=== PATIENT | male | born 1955 | race Hispanic/Latino ===

== ENCOUNTER 2017-10-14 09:31 | Inpatient (IN) | payer OTHER ==
[2017-10-14 09:38] VITALS: BMI 43.0
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
[2017-10-14 11:00] LABS: BASO # 0.02 K/mm3 (0.0-2.0); BASO % 0.2 % (0.0-3.0); EOS # 0.2 (0.0-0.7); EOS % 1.3 % (1.5-5.0); GRAN # 10.58 (1.4-6.5); GRAN % 83.2 % (50.0-68.0); HEMATOCRIT 32.2 % (42.0-52.0); LYMPH # 1.1 (1.2-3.4); LYMPH % 8.5 % (22.0-35.0); MEAN CELL VOLUME 86.6 fl (80.0-105.0); MEAN CORPUSCULAR HEMOGLOBIN 29.3 pg (25.0-35.0); MEAN CORPUSCULAR HGB CONC 33.9 g/dl (31.0-37.0); MEAN PLATELET VOLUME 11.4 fl (7.0-11.0); MONO # 0.9 (0.1-0.6); MONO % 6.8 % (1.0-6.0); WHITE BLOOD COUNT 12.7 10^3/ul (4.5-11.0)
[2017-10-14 11:12] LABS: BLOOD UREA NITROGEN 15 mg/dL (7-21); CALCIUM 7.5 mg/dL (8.4-10.5); CARBON DIOXIDE 24 mmol/L (21-33); CHLORIDE 110 mmol/L (98-107); GFR AFRICAN-AMERICAN > 60; GLUCOSE,RANDOM 180 mg/dL (70-110); POTASSIUM 3.9 mmol/L (3.6-5.0); SODIUM 138 mmol/L (132-148)
[2017-10-14 11:21] LABS: INR 3.02 (0.93-1.08); PARTIAL THROMBOPLASTIN TIME 31.6 Seconds (25.1-36.5)
[2017-10-14] MEDS ORDERED: Lidocaine 1% Inj (20ml) ONE (11:22)
[2017-10-14] MEDS ORDERED: Sodium Chloride 0.9% 1,000 ML IV STA ×2 (11:33→15:23)
[2017-10-14] MEDS ORDERED: Cefepime IV 2 gm in NS 2 GM/100 ML BAG IVPB STA (12:11)
[2017-10-14 12:12] LABS: TROPONIN I < 0.01 ng/mL
--- NOTE | 2017-10-14 13:09 | RAD ---
HISTORY: hypotension COMPARISON: 06/21/2014 FINDINGS: LUNGS: No active pulmonary disease. PLEURA: No significant pleural effusion identified, no pneumothorax apparent. CARDIOVASCULAR: Moderate cardiomegaly OSSEOUS STRUCTURES: No significant abnormalities. VISUALIZED UPPER ABDOMEN: Normal. OTHER FINDINGS: None. IMPRESSION: No active disease.
[2017-10-14 13:26] LABS: VENOUS BLOOD GAS BASE EXCESS -1.2 mmol/L (0.0-2.0); VENOUS BLOOD PH 7.31 (7.32-7.43)
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
[2017-10-14 14:48] LABS: URINE BILIRUBIN NEGATIVE (NEGATIVE); URINE BLOOD NEGATIVE (NEGATIVE); URINE GLUCOSE (UA) NEGATIVE (NEGATIVE); URINE KETONE NEGATIVE (NEGATIVE); URINE LEUKOCYTE ESTERASE NEGATIVE Leu/uL (NEGATIVE); URINE PROTEIN 30 mg/dL (<30 mg/dL); URINE UROBILINOGEN 0.2 E.U./dL (<1 E.U./dL)
[2017-10-14 14:53] LABS: URINE APPEARANCE CLEAR (CLEAR); URINE COLOR YELLOW (YELLOW)
[2017-10-14 14:55] LABS: URINE BACTERIA TRACE (NEG); URINE EPITHELIAL CELLS 0 - 2 /hpf (0-5); URINE RBC NEGATIVE /hpf (0-2); URINE WBC 0 - 2 /hpf (0-6)
[2017-10-14] MEDS ORDERED: TRAMADOL HYDROCHLORIDE 50 MG PO PRN (20:35)
[2017-10-14] MEDS ORDERED: Non Formulary Medication (Hydralazine Hcl [Hydralazine Hcl] 100 MG) PO SCH (22:00)
[2017-10-14] MEDS: Sodium Chloride 0.9% 1,000 ML IV SCH (22:00)
[2017-10-14] MEDS ORDERED: Non Formulary Medication (Simvastatin [Simvastatin] 40 MG) PO SCH (22:00)
[2017-10-14] MEDS ORDERED: LISINOPRIL 40 MG PO SCH (22:00)
[2017-10-14] MEDS ORDERED: DILTIAZEM 240 MG PO SCH (22:00)
[2017-10-14] MEDS ORDERED: diltiaZEM 240 mg/24 Hours CD Cap PO STA (22:01)
--- NOTE | 2017-10-14 22:10 | CARD ---
APPROVED REPORT EKG Measurement Heart [id number] <Conclusion> Atrial fibrillation Nonspecific T wave abnormality, probably digitalis effect Prolonged QT Abnormal ECG
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
[2017-10-14] MEDS ORDERED: SOTALOL HYDROCHLORIDE PO SCH (22:45)
[2017-10-15 01:06] LABS: HEMATOCRIT 28.5 % (42.0-52.0); MEAN CELL VOLUME 84.1 fl (80.0-105.0); MEAN CORPUSCULAR HEMOGLOBIN 28.9 pg (25.0-35.0); MEAN CORPUSCULAR HGB CONC 34.4 g/dl (31.0-37.0); RED CELL DISTRIBUTION WIDTH 14.9 % (11.5-14.5); WHITE BLOOD COUNT 12.3 10^3/ul (4.5-11.0)
[2017-10-15 01:26] LABS: BLOOD UREA NITROGEN 14 mg/dL (7-21); CARBON DIOXIDE 26 mmol/L (21-33); CHLORIDE 111 mmol/L (98-107); GFR AFRICAN-AMERICAN > 60; GLUCOSE,RANDOM 120 mg/dL (70-110); MAGNESIUM 1.8 mg/dL (1.7-2.2); PHOSPHOROUS 2.5 mg/dL (2.5-4.5); POTASSIUM 3.5 mmol/L (3.6-5.0); SODIUM 141 mmol/L (132-148)
[2017-10-15 01:37] LABS: TROPONIN I < 0.01 ng/mL
[2017-10-15] MEDS: diltiaZEM 240 mg/24 Hours CD Cap PO SCH (09:49)
[2017-10-15] MEDS: Potassium Chloride 10 mEq ER Tab PO SCH ×2 (09:49→18:22)
[2017-10-15] MEDS ORDERED: diltiaZEM 240 mg/24 Hours CD Cap PO SCH (10:00)
[2017-10-15] MEDS: Sodium Chloride 0.9% 1,000 ML IV SCH (10:41)
--- NOTE | 2017-10-15 12:50 | CP.PCM.CON ---
History of Present Illness - History of Present Illness History of Present Illness: 62 year old male with PMH of atrial fibrillation on anticoagulation, morbid obesity with BMI 44 with chronic venous stasis and history of leg cellulitis, S/ P appendectomy, S/P tonsillectomy, history of varicose veins came in to [facility] after he noted bleeding from the back of his right leg / right foot while taking a shower. After seeing that, he started to feel lightheaded and his vision became blurry. EMS was called and they put pressure on the bleeding area and he was brought to [facility] [place]. He was noted to have a possible varicose vein bleeding. He was also noted to have leukocytosis and Infectious diseases consult is requested to further evaluate and manage. He denies fever or chills, no nausea or vomiting, no chest pain, no SOB, no headache or dizziness, no abdominal pain, no diarrhea, no dysuria, no cough or colds. He denies any increased pain the legs. Has dogs and cats at home that occasionally brush on his legs, but prior to the bleeding he did not have open ulcers or wounds in the legs. Review of Systems - Review of Systems All systems: reviewed and no additional remarkable complaints except (as per HPI ) Past Patient History - Infectious Disease Hx of Infectious Diseases: None - Tetanus Immunizations Tetanus Immunization: Unknown - Past Social History Smoking Status: Never Smoked - CARDIAC Hx Cardiac Disorders: No Hx Angina: No Hx Cardia Arrhythmia: Yes (Afib) Hx Congestive Heart Failure: Yes Hx Hypercholesterolemia: Yes Hx Hypertension: Yes Hx Peripheral Edema: Yes (Bilateral Edema) Other/Comment: Ablation - PULMONARY Hx Respiratory Disorders: Yes Hx Asthma: Yes - NEUROLOGICAL Hx Neurological Disorder: No - HEENT Hx HEENT Problems: No (WEARS RX GLASSES) - RENAL Hx Chronic Kidney Disease: No - ENDOCRINE/METABOLIC Hx Endocrine Disorders: No - HEMATOLOGICAL/ONCOLOGICAL Hx Blood Disorders: No - INTEGUMENTARY Hx Dermatological Problems: Yes (BILATERAL LE CELLULITIS) - MUSCULOSKELETAL/RHEUMATOLOGICAL Hx Falls: Yes - GASTROINTESTINAL Hx Gastrointestinal Disorders: Yes (APPENDECTOMY) - GENITOURINARY/GYNECOLOGICAL Hx Genitourinary Disorders: No - PSYCHIATRIC Hx Anxiety: No Hx Bipolar Disorder: No Hx Depression: No Hx Emotional Abuse: No Hx Physical Abuse: No - SURGICAL HISTORY Hx Appendectomy: Yes Hx Cardiac Catheterization: No - ANESTHESIA Hx Anesthesia Reactions: No Hx Malignant Hyperthermia: No Meds Allergies/Adverse Reactions: Allergies Allergy/AdvReac Type Severity Reaction Status Date / Time codeine Allergy ITCHING Verified 02/21/16 16:18 - Medications Medications: Current Medications Amlodipine Besylate (Norvasc) 10 mg PO [facility] Last Admin: 10/14/17 21:13 Dose: Not Given Atorvastatin Calcium (Lipitor) 20 mg PO DIN [facility] Diltiazem HCl (Cardizem Cd) 240 mg PO DAILY [facility] Furosemide (Lasix) 40 mg PO DAILY [facility] Hydralazine HCl (Apresoline) 100 mg PO TID [facility] Sodium Chloride (Sodium Chloride 0.9%) 1,000 mls @ 70 mls/hr IV .[id number] [facility] Potassium Chloride (Potassium Chloride 10 Meq/100 Ml) 10 meq in 100 mls @ 100 mls/hr IVPB Q2H [facility] Stop: 10/15/17 07:14 Last Admin: 10/15/17 04:47 Dose: 100 mls/hr Lisinopril (Zestril) 40 mg PO DAILY [facility] Losartan Potassium (Cozaar) 100 mg PO DAILY [facility] Last Admin: 10/14/17 21:13 Dose: Not Given Potassium Chloride (Klor-Con 10) 10 meq PO BID [facility] Sotalol HCl (Betapace) 80 mg PO BID [facility] Tamsulosin HCl (Flomax) 0.4 mg PO DAILY [facility] Tramadol HCl (Ultram) 50 mg PO BID PRN PRN Reason: PAIN,MOD Physical Exam - Constitutional Appears: Non-toxic, No Acute Distress - Head Exam Head Exam: NORMAL INSPECTION - ENT Exam ENT Exam: Mucous Membranes Moist - Neck Exam Neck exam: Negative for: Lymphadenopathy, Meningismus - Respiratory Exam Respiratory Exam: Decreased Breath Sounds - Cardiovascular Exam Cardiovascular Exam: +S1, +S2 - GI/Abdominal Exam GI & Abdominal Exam: Soft. absent: Tenderness - Extremities Exam Additional comments: right leg with dressings in place Results - Vital Signs Recent Vital Signs: Last Vital Signs Temp 98.2 F 10/14/17 16:17 Pulse 118 H 10/15/17 02:00 Resp 22 10/15/17 00:43 BP 122/76 10/14/17 22:06 Pulse Ox 97 10/14/17 18:53 - Labs Result Diagrams: 10/15/17 00:30 10/15/17 00:30 Labs: Laboratory Results - last 24 hr 10/14/17 10/14/17 10/15/17 12:55 14:20 00:30 WBC 12.3 H RBC 3.39 L Hgb 9.8 L Hct 28.5 L MCV 84.1 MCH 28.9 MCHC 34.4 RDW 14.9 H Plt Count 159 MPV 11.0 pO2 46 VBG pH 7.31 L VBG pCO2 51.0 VBG HCO3 25.7 VBG Total CO2 27.3 VBG O2 Sat (Calc) 83.5 H VBG Base Excess -1.2 L VBG Potassium 3.5 L Sodium 140.0 Chloride 110.0 H Glucose 140 H Lactate 1.9 FiO2 21.0 Potassium Carbon Dioxide Anion Gap BUN Creatinine Est GFR ( Amer) Est GFR (Non-Af Amer) Random Glucose Calcium Phosphorus Magnesium Troponin I Venous Blood Potassium 3.5 L Urine Color Yellow Urine Appearance Clear Urine pH 7.0 Ur Specific [place] 1.015 Urine Protein 30 H Urine Glucose (UA) Negative Urine Ketones Negative Urine Blood Negative Urine Nitrate Negative Urine Bilirubin Negative Urine Urobilinogen 0.2 Ur Leukocyte Esterase Negative Urine RBC Negative Urine WBC 0 - 2 Ur Epithelial Cells 0 - 2 Urine Bacteria Trace 10/15/17 00:30 WBC RBC Hgb Hct MCV MCH MCHC RDW Plt Count MPV pO2 VBG pH VBG pCO2 VBG HCO3 VBG Total CO2 VBG O2 Sat (Calc) VBG Base Excess VBG Potassium Sodium 141 Chloride 111 H Glucose Lactate FiO2 Potassium 3.5 L Carbon Dioxide 26 Anion Gap 7 L BUN 14 Creatinine 0.9 Est GFR ( Amer) > 60 Est GFR (Non-Af Amer) > 60 Random Glucose 120 H Calcium 8.0 L Phosphorus 2.5 Magnesium 1.8 Troponin I < 0.01 Venous Blood Potassium Urine Color Urine Appearance Urine pH Ur Specific [place] Urine Protein Urine Glucose (UA) Urine Ketones Urine Blood Urine Nitrate Urine Bilirubin Urine Urobilinogen Ur Leukocyte Esterase Urine RBC Urine WBC Ur Epithelial Cells Urine Bacteria Assessment & Plan - Assessment and Plan (Free Text) Plan: Assessment systemic Inflammatory Response Syndrome, consider due to acute stress reaction from bleeding varicose veins, R/O infection , so far no evidence identified atrial fibrillation on anticoagulation morbid obesity with BMI 44 with chronic venous stasis and history of leg cellulitis S/P appendectomy S/P tonsillectomy history of varicose veins Plan Will monitor the patient off antibiotics and check blood, urine cx, PCT; reviewed CXR there is no evidence of acute infection in the legs will monitor clinically
--- NOTE | 2017-10-15 13:08 | CP.PCM.PN ---
Subjective - Date & Time of Evaluation Date of Evaluation: 10/15/17 Time of Evaluation: :15 - Subjective Subjective: PGY1 General Surgery Progress Note for Dr. Mims Reason for consult: bleeding varicose vein Patient seen and examined this morning at bedside. Patient states he is doing well this morning. His bleeding has stopped since having a dressing placed on his leg last night. Patient has no complaints this morning. He states he has been able to stand up and walk in his room since last night. Denies fevers, chills, lightheadedness, dizziness, chest pain, palpitations or vision changes. Objective - Vital Signs/Intake and Output Vital Signs (last 24 hours): Temp Pulse Resp BP Pulse Ox 98.4 F 106 H 20 129/81 96 10/15/17 06:00 10/15/17 09:50 10/15/17 06:00 10/15/17 09:50 10/15/17 06:00 Intake and Output: 10/15/17 10/15/17 06:59 18:59 Intake Total 300 Output Total 1650 Balance -1350 - Medications Medications: Current Medications Amlodipine Besylate (Norvasc) 10 mg PO [facility] Last Admin: 10/15/17 09:49 Dose: 10 mg Atorvastatin Calcium (Lipitor) 20 mg PO DIN [facility] Diltiazem HCl (Cardizem Cd) 240 mg PO DAILY [facility] Last Admin: 10/15/17 09:49 Dose: 240 mg Furosemide (Lasix) 40 mg PO DAILY [facility] Last Admin: 10/15/17 09:49 Dose: 40 mg Hydralazine HCl (Apresoline) 100 mg PO TID [facility] Last Admin: 10/15/17 09:50 Dose: 100 mg Sodium Chloride (Sodium Chloride 0.9%) 1,000 mls @ 70 mls/hr IV .[id number] [facility] Last Admin: 10/15/17 10:41 Dose: 70 mls/hr Lisinopril (Zestril) 40 mg PO DAILY [facility] Last Admin: 10/15/17 09:49 Dose: 40 mg Losartan Potassium (Cozaar) 100 mg PO DAILY [facility] Last Admin: 10/15/17 09:49 Dose: 100 mg Potassium Chloride (Klor-Con 10) 10 meq PO BID [facility] Last Admin: 10/15/17 09:49 Dose: 10 meq Sotalol HCl (Betapace) 80 mg PO BID [facility] Last Admin: 10/15/17 09:50 Dose: 80 mg Tamsulosin HCl (Flomax) 0.4 mg PO DAILY [facility] Last Admin: 10/15/17 09:49 Dose: 0.4 mg Tramadol HCl (Ultram) 50 mg PO BID PRN PRN Reason: PAIN,MOD - Labs Labs: 10/15/17 00:30 10/15/17 00:30 PT 34.0 SECONDS (9.4-12.5) H 10/14/17 10:30 INR 3.02 (0.93-1.08) H 10/14/17 10:30 APTT 31.6 Seconds (25.1-36.5) 10/14/17 10:30 - Constitutional Appears: Non-toxic, No Acute Distress - Head Exam Head Exam: ATRAUMATIC - Eye Exam Eye Exam: EOMI, Normal appearance. absent: Scleral icterus - ENT Exam ENT Exam: Mucous Membranes Moist - Respiratory Exam Respiratory Exam: NORMAL BREATHING PATTERN. absent: Accessory Muscle Use, Respiratory Distress - Extremities Exam Extremities Exam: Pedal Edema. absent: Calf Tenderness, Tenderness - Back Exam Additional comments: chronic venous stasis sking changes on LE b/l, 2+ edema large varicose veins medial to ankle b/l; pressure dressing on RLE is in place and c/d/i - Neurological Exam Neurological Exam: Alert, Awake, Oriented x3 - Psychiatric Exam Psychiatric exam: Normal Affect, Normal Mood - Skin Skin Exam: Dry, Warm Assessment and Plan - Assessment and Plan (Free Text) Assessment: 62 year old male on coumadin w/ bleeding varicose vein PMH: afib s/o ablation on coumadin, HTN, HLD, chronic venous stasis, varicose veins PSH: appy and tonsillectomy, cardiac ablation Plan: - LE duplex b/l - r/o DVT - Bleeding is currently controlled with pressure dressing - if re-bleed occurs, apply manual pressure and d/c coumadin - INR - 3.02 (10/14) - Hgb - 9.8 (10/15) from 10.9 (10/14) - No surgical intervention at this time - If LE duplex is negative, surgery will sign off. Patient can follow up with Dr. Mims in his office as an outpatient to address varicose veins. Case discussed with Dr. Felicita Oleary Ines PGY1
--- NOTE | 2017-10-15 15:47 | US ---
HISTORY: Leg pain and swelling. Evaluate for DVT PHYSICIAN(S): Nick Rodrigues MD. TECHNIQUE: Duplex sonography and color-flow Doppler with graded compression were used to evaluate the deep venous systems of both lower extremities. The exam is limited by body habitus and edema. The tibial veins are not adequately visualized. FINDINGS: The visualized deep venous systems of both lower extremities are sonographically normal and compressible. Normal wave forms and augmentation are seen. There is no sonographic evidence for deep venous thrombosis in the visualized segments of both lower extremities. IMPRESSION: No sonographic evidence for deep venous thrombosis in the visualized segments of both lower extremities. Limited study.
[2017-10-15] MEDS ORDERED: Potassium Chloride 10 mEq ER Tab PO STA ×2 (20:20→22:32)
--- NOTE | 2017-10-15 23:48 | HP ---
DATE: 10/14/2017 REASON FOR ADMISSION: Bleeding from his leg and dizziness. HISTORY OF PRESENT ILLNESS: A 62-year-old male with multiple medical problems, including right varicose veins in both lower extremities with chronic venous stasis. He also has atrial fibrillation on Coumadin, hypertension, hypercholesterolemia, morbid obesity, chronic back pain, and arthritis. The patient came into the hospital, noted while he was taking a shower there was warm feeling in his feet, he looked and found a pool of blood. He got dizzy from the way it looks; however, before he got syncopized or before he got so dizzy and weak, he called his neighbor, who came in and brought him to the ER by ambulance. The patient was evaluated. He was hypotensive and he was a little bit very anxious and confused, however, stabilized later on. His mental status improved without any intervention. The patient came in with right leg bleeding from the varicose site, and EMS treated him by putting pressure and brought him to the ER, IV fluids, and was evaluated. The patient denied any chest pain, any short of breath, any palpitations, any headache. He denied any trauma or any fall. He did not loose his consciousness, and he had denied any fever or any chills. PAST MEDICAL HISTORY: As I mentioned before, significant for hypertension, chronic atrial fibrillation, morbid obesity, hypercholesterolemia, chronic venous stasis, varicose veins, morbid obesity, hypercholesterolemia, and chronic osteoarthritis. SOCIAL HISTORY: The patient does not smoke, does not drink, does not use any alcohol. ALLERGIES: HE HAS ALLERGY TO CODEINE. FAMILY HISTORY: Noncontributory. REVIEW OF SYSTEMS: of arthritis, back pain. PHYSICAL EXAMINATION: VITAL SIGNS: When he came in on the date of admission, his temperature was 98.4, heart rate was 118, blood pressure was in the 90/65, respirations 20, saturation 97%. HEAD AND NECK: Normal. No JVD. No thyromegaly. CHEST: Clear, good air entry. CARDIAC: First sound and second sound normal. ABDOMEN: Soft, obese, nontender. EXTREMITIES: Right leg, there was gauze around his right ankle area where there is a bleeding site and there is trace of blood around his toes which was recently cleaned with saline. NEUROLOGIC: Normal. LABORATORY DATA: As follows; his white count 12.7, hemoglobin 10.9, hematocrit 32.2, platelets 176. Chemistry shows sodium 138, potassium 3.9, chloride 110, bicarb 24, BUN 15, creatinine is 1, blood sugar 180, calcium 7.5, and his troponin was negative. The patient also had a UA which was normal, negative. He also had a blood gas with a normal pH of 7.31, pCO2 of 51. The patient had a PT, PTT, INR was 3.02 which was within normal therapeutic range. PTT was 31.6 which was normal. IMPRESSION AND PLAN: A 62-year-old male with multiple medical problems, chronic venous insufficiency, chronic atrial fibrillation on Coumadin. He found bleeding from the varicose veins, massive bleeding, which made him probably vasovagal symptoms with dizziness associated with this. Brought in with low blood pressure and massive amount of bleeding. We will admit the patient for observation. We will blood culture him. We will give him a dose of Maxipime and vancomycin x1. We will get an Infectious Disease consult to followup on that. We will admit him for observation. Monitor his vital status, his bleeding status. We will repeat his blood work, CBC, and chemistry in the morning. We will hold off on Coumadin. The patient is not actively bleeding at this time. We will not antagonize his Coumadin with any fresh frozen plasma at this time. We will continue to observe the patient. We will hold off on blood pressure medications. IV fluids will be given and monitor his vital status on telemetry. Also we will consider Cardiology consult, Dr. Johnson, and vascular surgeon Dr. Mims and Dr. Nick Rodrigues for varicose veins evaluations. Continue current therapy for now. Followup clinically. The patient had a chest x-ray which shows no active lung disease, and he also add an electrocardiogram on admission which reported as no active ischemia and also reported as non-specific Q-wave abnormalities, atrial fibrillation, and prolonged QT interval. Manav Rubio MD
[2017-10-16] MEDS: Sodium Chloride 0.9% 1,000 ML IV SCH (00:41)
[2017-10-16 06:50] LABS: INR 2.05 (0.93-1.08)
[2017-10-16 07:50] LABS: BLOOD UREA NITROGEN 8 mg/dL (7-21); CALCIUM 8.4 mg/dL (8.4-10.5); CARBON DIOXIDE 26 mmol/L (21-33); CHLORIDE 110 mmol/L (98-107); CHOLESTEROL 132 mg/dL (130-200); GFR AFRICAN-AMERICAN > 60; GLUCOSE,RANDOM 103 mg/dL (70-110); MAGNESIUM 1.9 mg/dL (1.7-2.2); PHOSPHOROUS 2.4 mg/dL (2.5-4.5); POTASSIUM 3.3 mmol/L (3.6-5.0); SODIUM 141 mmol/L (132-148)
[2017-10-16] MEDS ORDERED: Potassium Chloride 20 mEq ER Tab PO ONE ×2 (08:48→12:32)
[2017-10-16] MEDS ORDERED: Aminophylline 25 mg/ml Inj ONE (09:29)
[2017-10-16] MEDS: Potassium Chloride 10 mEq ER Tab PO SCH ×2 (11:42→17:44)
[2017-10-16] MEDS: diltiaZEM 240 mg/24 Hours CD Cap PO SCH (11:42)
[2017-10-16] MEDS: Ammonium Lactate 12% Cream (140 g) TOP SCH (11:45)
--- NOTE | 2017-10-16 13:26 | CP.PCM.PN ---
Subjective - Date & Time of Evaluation Date of Evaluation: 10/16/17 Time of Evaluation: 10:30 - Subjective Subjective: Comfortable on a chair, no fevers, less pain in the right lower extremity. Objective - Vital Signs/Intake and Output Vital Signs (last 24 hours): Temp Pulse Resp BP Pulse Ox 98.7 F 85 18 127/79 97 10/16/17 06:00 10/16/17 06:00 10/16/17 06:00 10/16/17 06:00 10/16/17 06:00 Intake and Output: 10/16/17 10/16/17 06:59 18:59 Intake Total 1166 Output Total 1300 Balance -134 - Medications Medications: Current Medications Amlodipine Besylate (Norvasc) 10 mg PO [facility] Last Admin: 10/15/17 21:45 Dose: 10 mg Apixaban (Eliquis) 5 mg PO BID [facility] PRN Reason: Protocol Last Admin: 10/15/17 18:22 Dose: 5 mg Atorvastatin Calcium (Lipitor) 20 mg PO DIN [facility] Last Admin: 10/15/17 18:22 Dose: 20 mg Diltiazem HCl (Cardizem Cd) 240 mg PO DAILY [facility] Last Admin: 10/15/17 09:49 Dose: 240 mg Furosemide (Lasix) 40 mg PO DAILY [facility] Last Admin: 10/15/17 09:49 Dose: 40 mg Hydralazine HCl (Apresoline) 100 mg PO TID [facility] Last Admin: 10/15/17 18:24 Dose: Not Given Lactic Acid (Lac-Hydrin 12% Cream (140 G)) 1 ea TOP DAILY [facility] Lisinopril (Zestril) 40 mg PO DAILY [facility] Last Admin: 10/15/17 09:49 Dose: 40 mg Losartan Potassium (Cozaar) 100 mg PO DAILY [facility] Last Admin: 10/15/17 09:49 Dose: 100 mg Potassium Chloride (Klor-Con 10) 10 meq PO BID [facility] Last Admin: 10/15/17 18:22 Dose: 10 meq Sotalol HCl (Betapace) 80 mg PO BID [facility] Last Admin: 10/15/17 18:24 Dose: 80 mg Tamsulosin HCl (Flomax) 0.4 mg PO DAILY [facility] Last Admin: 10/15/17 09:49 Dose: 0.4 mg Tramadol HCl (Ultram) 50 mg PO BID PRN PRN Reason: PAIN,MOD - Labs Labs: 10/15/17 00:30 10/16/17 05:30 PT 22.9 SECONDS (9.4-12.5) H 10/16/17 05:30 INR 2.05 (0.93-1.08) H 10/16/17 05:30 APTT 31.6 Seconds (25.1-36.5) 10/14/17 10:30 - Constitutional Appears: Non-toxic, No Acute Distress - Head Exam Head Exam: NORMAL INSPECTION - ENT Exam ENT Exam: Mucous Membranes Moist - Neck Exam Neck Exam: absent: Lymphadenopathy, Meningismus - Respiratory Exam Respiratory Exam: Decreased Breath Sounds - Cardiovascular Exam Cardiovascular Exam: +S1, +S2 - GI/Abdominal Exam GI & Abdominal Exam: Soft. absent: Tenderness Assessment and Plan - Assessment and Plan (Free Text) Plan: Assessment systemic Inflammatory Response Syndrome, consider due to acute stress reaction from bleeding varicose veins, R/O infection , so far no evidence identified atrial fibrillation on anticoagulation morbid obesity with BMI 44 with chronic venous stasis and history of leg cellulitis S/P appendectomy S/P tonsillectomy history of varicose veins Plan Will monitor the patient off antibiotics; blood, urine cx are negative; PCT is pending; reviewed CXR there is no evidence of acute infection in the legs will continue monitor clinically
--- NOTE | 2017-10-16 16:29 | CARD ---
APPROVED REPORT EXAM: Two-dimensional and M-mode echocardiogram with Doppler and color Doppler. INDICATION Dyspnea 2D DIMENSIONS Left Atrium (2D)5.4 (1.6-4.0cm)IVSd1.3 (0.7-1.1cm) LVDd5.6 (3.9-5.9cm)PWd1.2 (0.7-1.1cm) LVDs3.5 (2.5-4.0cm)FS (%) 36.9 % LVEF (%)66.3 (>50%) M-Mode DIMENSIONS Aortic Root3.90 (2.2-3.7cm)Aortic Cusp Exc.1.80 (1.5-2.0cm) Aortic Valve AoV Peak Wxygqujx340.0cm/Layla Peak GR.6mmHg Mitral Valve E/A ratio0.0 TDI E/Lateral E'0.0E/Medial E'0.0 Pulmonary Valve PV Peak Ficzcdca38.4cm/sPV Peak Grad.3mmHg Tricuspid Valve TR Peak [id number]/sRAP [id number] Peak Gr.42mmHg [id number] LEFT VENTRICLE The left ventricle is normal size. There is normal left ventricular wall thickness. The left ventricular function is normal.EF-60-65% There is normal LV segmental wall motion. Transmitral Doppler flow pattern is Grade II-pseudonormal filling dynamics. No left ventricle thrombus noted on this study. There is no ventricular septal defect visualized. There is no left ventricular aneurysm. There is no mass noted in the left ventricle. RIGHT VENTRICLE The right ventricle is mildly dilated. There is normal right ventricular wall thickness. The right ventricular systolic function is normal. ATRIA The left atrium is mildly dilated. The right atrium is mildly dilated. The interatrial septum is intact with no evidence for an atrial septal defect. AORTIC VALVE The aortic valve is thickened but opens well. There is trace aortic regurgitation. There is no aortic valvular stenosis. There is no aortic valvular vegetation. MITRAL VALVE The mitral valve is thickened but opens well. Mitral regurgitation is trace. There is no mitral valve stenosis. There is no evidence of mitral valve prolapse. TRICUSPID VALVE The tricuspid valve leaflets are thickened , but open well. There is moderate tricuspid regurgitation.RVSP-52 mmof hg. There is mild pulmonary hypertension. There is no tricuspid valve stenosis. There is no tricuspid valve prolapse or vegetation. PULMONIC VALVE The pulmonary valve is normal in structure. There is trace pulmonic valvular regurgitation. There is no pulmonic valvular stenosis. GREAT VESSELS The aortic root is normal in size. The ascending aorta is normal in size. The pulmonary artery is normal. The IVC is normal in size and collapses >50% with inspiration. PERICARDIAL EFFUSION There is no pleural effusion. There is no pericardial effusion. <Conclusion> The left ventricle is normal size. There is normal left ventricular wall thickness. The left ventricular function is normal.EF-60-65%. Dilated RA/RV/LA There is trace aortic regurgitation. Mitral regurgitation is trace. There is moderate tricuspid regurgitation.RVSP-52 mmof hg. There is mild pulmonary hypertension. The IVC is normal in size and collapses >50% with inspiration. There is no pericardial effusion.
--- NOTE | 2017-10-16 17:14 | PN ---
SUBJECTIVE: This is 62-year-old male came in with varicose vein bleeding from his leg and was seen by vascular surgeon and Dr. Mims. Patient is comfortable. No distress. Overnight, he has a ventricular tachycardia for 2 minutes according to the nurses. He had his medication for sotalol and Dr. Glass and Dr. Johnson saw him. The patient has no chest pain. No short of breath. He feels comfortable and no further bleeding. PHYSICAL EXAMINATION: Today, as follows: VITAL SIGNS: Temperature 98.4, heart rate 74, blood pressure 110/70, respirations 18. HEAD AND NECK: Normal. No JVD. No thyromegaly. CHEST: Clear. Good air entry. CARDIAC: First sound and second sound normal. ABDOMEN: Soft, obese, nontender. EXTREMITIES: No edema. Right foot is wrapped with boots but noted also dry skin in lower extremity. NEUROLOGIC: Normal. LABORATORY STUDIES: Noted for his white count 12.3, hemoglobin 9.8, hematocrit 28.5, platelets 159. His chemistry noted today as follows; sodium 141, potassium 3.5, chloride 111, bicarbonate 26, BUN 14 and creatinine 0.9. The patient also had magnesium level, which was within normal range. His magnesium level was done today. I am just going to mention it was 1.8. Also repeat troponin was negative. IMPRESSION AND PLAN: 1. Ventricular tachycardia. We will get a cardiology evaluation. The patient will continue sotalol, Cardizem, and we will follow up on that. Potassium will be replaced. 2. History of hypertension. Blood pressure seems stable, resume blood pressure medicines. 3. Atrial fibrillation. We will consider switching the patient from Coumadin to Eliquis 5 mg b.i.d. if it is okay with Dr. Johnson. Cardiac workup will be proceeding and we will follow up. 4. Right leg varicose vein bleeding, stable. No further bleeding. We will monitor the situations at this time. 5. Chronic venous stasis. We will get podiatry consult and will get Lac-Hydrin in both legs and we will further evaluate his condition for his varicose veins by the other specialist. 6. Hypertension. 7. Atrial fibrillation. 8. Morbid obesity. 9. Hypercholesterolemia. We will resume medications and followup clinically. His hemoglobin is stable. I will hold off on any transfusions. I discussed with the patient before that the patient will benefit from preventive measures like include colonoscopy; however, his noncompliance is one of the issues with the patient. We will continue current therapy at this time. Followup clinically. Manav Rubio MD
--- NOTE | 2017-10-17 02:12 | CON ---
DATE: 10/16/2017 HISTORY OF PRESENT ILLNESS: This 62-year-old male known to me from the past, admitted for a bleeding varicose vein. The patient states that the vein just burst and it caused him to be very upset because of the blood. He denies any trauma to the area. PAST MEDICAL HISTORY: Positive for diabetes; atrial fibrillation, on Coumadin; hypertension; chronic venous stasis with history of an ulceration; varicose veins. PAST SURGICAL HISTORY: Positive for tonsillectomy, cardiac ablation, and appendectomy. SOCIAL HISTORY: The patient lives at home and he denies smoking or drug abuse. REVIEW OF SYSTEMS: Negative for chills or fever. Negative for ENT. Positive for cardiac, leg edema. GI is negative for pain and nausea. Negative for . Integumentary is positive for history of ulceration and the bleeding varicose veins. Endocrine is negative for diabetes. Hematology is positive secondary to the Coumadin. PHYSICAL EXAMINATION: VITAL SIGNS: Show that he is afebrile with temperature of 98.4, pulse rate was 87, blood pressure 133/84 and respirations are 20. MEDICATIONS: The patient's medications are noted on the MAR. The patient's laboratories show white blood cell count of 12.3, H and H is 9.8/28.5 and the platelets are 159. The patient's chemistry shows potassium of 3.3, sodium of 141, BUN is 8, creatinine is 0.7 and GFR was less than 60. The patient's microbiology has a urine culture with no growth and blood cultures with no growth. The patient's evaluation is an obese male with varicosities and leg edema, bilateral. He has 2/4 palpable pedal pulses to his lower extremities bilateral. Capillary refill time is within normal limits. His neurological sensation to the feet and legs are intact. The patient has an area on the medial ankle where the vein has broken, if there is a 332 distended vein in that area, there are no ulcerations noted on either legs. Both legs have mild edema. Both legs have secondary skin changes including scaling and brawny edema secondary to chronic edema of the lower extremities. Both legs have multiple varicosities. ASSESSMENT: Varicosities, venous insufficiency and ruptured vein to the right leg. PLAN OF TREATMENT: The patient was placed in compression. I did speak to him about wearing his compression dressing. He does have them, he states he has not been wearing them lately. The patient also was advised to seek out possible treatment for of his veins. The patient will be seen in followup. Lisa Mckinley DPM
[2017-10-17 07:22] LABS: BLOOD UREA NITROGEN 8 mg/dL (7-21); CALCIUM 8.7 mg/dL (8.4-10.5); CARBON DIOXIDE 29 mmol/L (21-33); CHLORIDE 108 mmol/L (98-107); GFR AFRICAN-AMERICAN > 60; GLUCOSE,RANDOM 98 mg/dL (70-110); MAGNESIUM 1.8 mg/dL (1.7-2.2); PHOSPHOROUS 2.9 mg/dL (2.5-4.5); POTASSIUM 3.4 mmol/L (3.6-5.0); SODIUM 144 mmol/L (132-148)
--- NOTE | 2017-10-17 08:16 | CON ---
DATE: 10/15/2017 LOCATION: The patient is in room 371, bed 1. REASON FOR CONSULTATION: Atrial fibrillation, hypertension, episode of syncope. HISTORY OF PRESENT ILLNESS: A 62-year-old obese male, who is known to have atrial fibrillation, hypertension, chronic venous stasis of both legs while in shower, when he suddenly saw that there was blood in bathtub and he got out of the bathtub and went to the living room and sat on the chair and he state that while sitting in the chair he passed out. He felt weak and dizzy after seeing the blood. The patient denies any chest pain, but he says he get shortness of breath on exertion specially going up stairs. He had history of atrial fibrillation and twice he had ablation to convert into sinus rhythm many years ago, but it went back into atrial fibrillation. He sleeps upright in his bed and get swelling of the legs. He had bleeding from one of the veins in the legs. PAST MEDICAL HISTORY: Positive for ablation for atrial fibrillation twice, recurrence of atrial fibrillation, hypertension, chronic venous stasis. PERSONAL HISTORY: Denies smoking, denies drinking. PAST SURGICAL HISTORY: The patient had tonsillectomy in childhood. HOME MEDICATIONS: The patient was on aspirin 81 mg daily, diltiazem CR 240 mg p.o. daily, furosemide 40 mg p.o. daily, lisinopril 40 mg p.o. daily, potassium chloride 10 mEq daily, simvastatin 40 mg daily, sotalol 80 mg p.o. b.i.d., Flomax 0.4 mg daily, Coumadin 6 mg p.o. daily, Advil 400 mg b.i.d., hydralazine 100 mg t.i.d., Cozaar 100 mg daily, amlodipine 10 mg daily. REVIEW OF SYSTEMS: All the systems reviewed and positive as mentioned in the history, otherwise negative. ALLERGIES: THE PATIENT DENIES ANY ALLERGIES. PHYSICAL EXAMINATION VITAL SIGNS: Blood pressure 110/70, respirations 18, pulse 74, temperature 98.4. HEENT: Head is normocephalic. Eyes; pupils normal. Conjunctivae slightly pale. NECK: JVP low. Carotids equal. THORAX: AP diameter normal. LUNGS: Clear. CARDIOVASCULAR: S1 and S2. ABDOMEN: Protuberant. No organomegaly. EXTREMITIES: The patient has discoloration both lower legs due to chronic venous stasis. The patient also has swelling of the legs. LABORATORY DATA: WBC 12.3, hemoglobin 9.8, hematocrit 28.5, platelet 159. Sodium 141, potassium 3.5, BUN 14, creatinine 0.9. Random glucose 120. Calcium 8.0, phosphorus 2.5, magnesium 1.8, troponin x2 less than 0.01. Chest x-ray no active disease. EKG showed atrial fibrillation, rate around 65 per minute, nonspecific ST-T changes. Prothrombin 934.0, INR 3.02. DIAGNOSES: Syncope probably vasovagal after seeing the blood, chronic venous stasis, atrial fibrillation, hypertension, obesity, dyslipidemia, hypokalemia. PLAN: The patient already put on potassium therapy, Lasix 40 mg p.o. daily, Lipitor 20 mg p.o. daily. The patient is on cefepime 2 g IV stat was given, amlodipine 10 mg p.o. daily, lisinopril 40 mg daily, Eliquis 5 mg b.i.d., losartan 100 mg daily, diltiazem CD 240 mg p.o. daily, sotalol 80 mg b.i.d., hydralazine 100 mg p.o. t.i.d.. Repeat SMA-7, PT/INR in the morning. We will do echocardiogram. We will also do IV Lexiscan stress test because the patient states that he did not have shortness of breath on exertion before, but now he is getting it. The patient's last stress test and echo was done in 06/23/2014 and that time echo showed normal LV size, moderate concentric left ventricular hypertrophy, ejection fraction 55%, RV was mildly dilated, and systolic function, RV was mildly reduced, mild tricuspid regurgitation with RVSP 30 mmHg and stress test was negative with normal ejection fraction of 53%. Stress test was done on 06/24/2014 and echo was done on 06/23/2014. We will follow with you. Stella Johnson MD
--- NOTE | 2017-10-17 08:20 | CON ---
DATE: 10/16/2017 LOCATION: The patient is in room 371, bed 1. REASON FOR CONSULTATION: Atrial fibrillation, shortness of breath on exertion, chronic venous stasis, bleeding from the rupture of a vein in the leg, hypertension, morbid obesity. SUBJECTIVE: The patient is lying flat in bed without chest pain, shortness of breath, or palpitation. PHYSICAL EXAMINATION: VITAL SIGNS: Blood pressure 133/84, respirations 20, pulse 87, and temperature 98.4. HEENT: Head is normocephalic. Eyes, pupils normal. Conjunctivae slightly pale. NECK: JVP low. Carotid equal. THORAX: AP diameter normal. LUNGS: No rales. CARDIOVASCULAR: S1 and S2, irregular rhythm due to atrial fibrillation. ABDOMEN: Protuberant. No organomegaly. EXTREMITIES: Marked changes of venous stasis on the lower leg. LABORATORY DATA: Shows WBC 12.3, hemoglobin 9.8, hematocrit 28.5, and platelets 159. Sodium 141, potassium 3.3, BUN 8, creatinine 0.7. Triglycerides 173, cholesterol 132, LDL 73, HDL 27. TSH 1.80, and phosphorus 2.4. DIAGNOSES: 1. Syncope after seeing blood coming out from the lower leg, probably vasovagal. 2. Chronic atrial fibrillation. 3. History of ablation x2 about more than 10 years ago, but it went back to atrial fibrillation. 4. Hypertension. 5. Morbid obesity. 6. Anemia. 7. Marked chronic venous stasis on the legs. 8. Shortness of breath on exertion. PLAN: The patient had last echo and stress test on 06/24/2014, so we are going to repeat IV Lexiscan stress test and echocardiogram to evaluate his cardiac status. In the meantime, the patient is on hydralazine 10 mg t.i.d., sotalol 80 b.i.d., Cardizem CD 240 p.o. daily, losartan 100 mg daily, and Eliquis 5 mg b.i.d. The patient received potassium 20 mEq once; we will give another 20 mEq today. Furosemide 40 p.o. daily, amlodipine 10 mg daily, lisinopril 40 mg daily, and we will repeat labs in the morning and also will follow echo and stress test; this will be done today. Stella Johnson MD
[2017-10-17] MEDS ORDERED: Potassium Chloride 20 mEq ER Tab PO ONE ×2 (08:25→12:31)
[2017-10-17] MEDS: diltiaZEM 240 mg/24 Hours CD Cap PO SCH (09:34)
[2017-10-17] MEDS: Potassium Chloride 10 mEq ER Tab PO SCH (09:35)
[2017-10-17] MEDS: Ammonium Lactate 12% Cream (140 g) TOP SCH (09:36)
--- NOTE | 2017-10-17 10:22 | PN ---
DATE: 10/16/2017 SUBJECTIVE: The patient is seen. He is doing better. He is seen by Podiatry and vascular surgeons. No active bleeding. No chest pain. No short of breath. No cardiac arrhythmia at this time. The patient is hemodynamically stable to go with his medications today. PHYSICAL EXAMINATION VITAL SIGNS: Temperature 98.5, heart rate 80, blood pressure 130/80, and respirations 20. HEAD AND NECK: Normal. No JVD. No thyromegaly. CHEST: Clear, good air entry. CARDIAC: First sound and second sound normal. ABDOMEN: Soft, obese and nontender. EXTREMITIES: There is no edema, but mild chronic stasis dermatitis on both legs and both legs are wrapped. LABORATORY STUDIES: On the 16, sodium 141, potassium 3.3, chloride 110, bicarb 26, BUN 8, and creatinine 0.7. Liver function test is normal. His magnesium 1.9. His triglycerides are 173, cholesterol is 132, LDL is 73, and HDL is 27. The patient also has TSH of 1.8. IMPRESSION AND PLAN: 1. Varicose vein bleeding and chronic stasis dermatitis: The patient was seen by Podiatry and vascular surgeons. Continue Lac-Hydrin. Keep wrapping in the leg for now. The patient is not active bleeding and will be stable will be discharged tomorrow. 2. Hypokalemia and electrolyte abnormalities. Replace potassium and repeat potassium and chemistry in the morning. 3. Hypertension: History of chronic atrial fibrillation as in EKG shown, at this time, we will discontinue Coumadin and we will start Eliquis 5 mg once a day. 4. Anemia of chronic, hemoglobin in the range of 10 to 9.8, stable. 5. Hypercholesteremia, morbid obesity, and chronic anemia. Plan is to continue current medications, switch Coumadin to Eliquis and continue all blood pressure medications and monitor his pressure. We may consider decrease amlodipine to 5 mg since his blood pressure runs in the 120, 110, and we will follow up clinically. CURRENT MEDICATIONS: He is getting hydralazine 100 mg t.i.d., sotalol 80 b.i.d., diltiazem CD 240 once a day, Cozaar 100 p.o. daily, Eliquis 5 mg b.i.d., Flomax 0.4 once a day, potassium 10 twice a day, lactic acid, which is Lac Hydrin on the skin 12%, Lasix 40 once a day, Lipitor 20 once a day, Norvasc 10 mg once a day, tramadol 50 mg b.i.d. p.r.n., and Zestril 40 mg p.o. daily. We will continue current of these medications tomorrow considering decreasing amlodipine to 5 mg. Manav Rubio MD
[2017-10-17 11:38] VITALS: BP 117/77; PULSE 85; RESP 18; TEMP 98.1; O2SAT 99
--- NOTE | 2017-10-17 13:22 | PN ---
DATE: SUBJECTIVE: A 62-year-old male known to the [facility] wound care team seen at bedside for continuation in management of trauma to varicosities on his right leg. The patient states he is feeling much better. He was quite traumatized by the experience. OBJECTIVE: VITAL SIGNS: The patient's temperature is 98.6, pulse rate of 83, blood pressure of 120/71, and respiratory rate of 20. EXTREMITIES: Palpable pedal pulses noted bilaterally. There are numerous varicosities in both lower extremity with +2 nonpitting lower extremity edema noted bilaterally. Protective sensation intact using 5.07 g monofilament wire testing. There are long-standing trophic skin changes secondary to chronic peripheral vascular disease, which includes numerous varicosities, hyperpigmentation, thin skin, and chronic venous stasis. LABORATORY FINDINGS: Revealed white count of 12.3, hemoglobin of 9.8, hematocrit of 28.5, and platelet count of 159. ASSESSMENT: Venous insufficiency with resolving trauma to varicosities of the left leg, which caused extensive bleeding. PLAN OF TREATMENT: The patient's wounds were cleansed with normal sterile saline and application of a light compressive dressing was applied. The patient was once again told to seek treatment of his varicosities at the vein center here with Dr. Nick Rodrigues. The patient agreed and the patient will be seen and followed until discharge. Doc Durham DPM
--- NOTE | 2017-10-17 13:36 | PN ---
DATE: 10/17/2017 LOCATION: The patient is in room 371, bed 1. REASON FOR CONSULTATION: Followup atrial fibrillation, shortness of breath on exertion, chronic venous stasis, bleeding from the rupture of a vein in the leg, hypertension, morbid obesity. SUBJECTIVE: The patient is lying flat in bed without any cardiac symptoms like chest pain, shortness of breath, or palpitation. PHYSICAL EXAMINATION: VITAL SIGNS: Blood pressure 120/71, respirations 18, pulse 85, temperature 98.1. HEENT: Head is normocephalic. Eyes, pupils normal. Conjunctivae slightly pale. NECK: JVP low. Carotid equal. THORAX: AP diameter normal. LUNGS: Clear. CARDIOVASCULAR: S1 and S2, irregular rhythm due to atrial fibrillation. ABDOMEN: Protuberant. No organomegaly. EXTREMITIES: Marked chronic venous stasis changes on the lower legs. No clubbing. No cyanosis. LABORATORY DATA: WBC 12.3, hemoglobin 9.8, hematocrit 28.5, platelet 159. Sodium 144, potassium 3.4, BUN 8, creatinine 0.8. Echocardiogram was done on 10/16/2017 that showed left ventricular size in normal with normal systolic function with EF of 60-65%, dilated RA, RV, and LA, trace aortic regurg, trace mitral regurg, moderate tricuspid regurg with RVSP 52 mmHg, suggestive of mild pulmonary hypertension. Stress test, the patient had IV Lexiscan stress test, but it is 2-day protocol because of obesity, so the patient having second part, so report will be available later on. DIAGNOSES: Syncope after seeing blood coming out from the lower leg, probably vasovagal, chronic atrial fibrillation, history of ablation x2 more than 10 years ago, but it went back into atrial fibrillation, hypertension, morbid obesity, anemia, chronic marked venous stasis lower legs, hypokalemia. PLAN: The patient has been ordered 20 mEq p.o. once today. We will give another 40 p.o. today. Furosemide 40 mg p.o. daily, Lipitor 20 mg daily, amlodipine 5 mg daily, lisinopril 40 mg daily, hydralazine 100 mg t.i.d., sotalol 80 mg b.i.d., diltiazem CD 240 p.o. daily, Cozaar 100 daily, Eliquis 5 mg b.i.d. We will follow. Stella Johnson MD
--- NOTE | 2017-10-17 14:30 | CP.PCM.PN ---
Subjective - Date & Time of Evaluation Date of Evaluation: 10/17/17 Time of Evaluation: 10:50 - Subjective Subjective: Comfortable, less pain in the right foot and ankle, no fevers overnight, no bleeding. Objective - Vital Signs/Intake and Output Vital Signs (last 24 hours): Temp Pulse Resp BP Pulse Ox 98.6 F 83 19 120/71 98 10/17/17 06:00 10/17/17 06:00 10/17/17 06:00 10/17/17 06:00 10/17/17 06:00 Intake and Output: 10/17/17 10/17/17 06:59 18:59 Intake Total 240 Balance 240 - Medications Medications: Current Medications Amlodipine Besylate (Norvasc) 5 mg PO DAILY [facility] Apixaban (Eliquis) 5 mg PO BID [facility] PRN Reason: Protocol Last Admin: 10/16/17 17:44 Dose: 5 mg Atorvastatin Calcium (Lipitor) 20 mg PO DIN [facility] Last Admin: 10/16/17 17:44 Dose: 20 mg Diltiazem HCl (Cardizem Cd) 240 mg PO DAILY [facility] Last Admin: 10/16/17 11:42 Dose: 240 mg Furosemide (Lasix) 40 mg PO DAILY [facility] Last Admin: 10/16/17 11:42 Dose: 40 mg Hydralazine HCl (Apresoline) 100 mg PO TID [facility] Last Admin: 10/16/17 17:44 Dose: 100 mg Lactic Acid (Lac-Hydrin 12% Cream (140 G)) 1 ea TOP DAILY [facility] Last Admin: 10/16/17 11:45 Dose: 1 applic Lisinopril (Zestril) 40 mg PO DAILY [facility] Last Admin: 10/16/17 11:43 Dose: 40 mg Losartan Potassium (Cozaar) 100 mg PO DAILY [facility] Last Admin: 10/16/17 11:42 Dose: 100 mg Potassium Chloride (Klor-Con 10) 10 meq PO BID [facility] Last Admin: 10/16/17 17:44 Dose: 10 meq Sotalol HCl (Betapace) 80 mg PO BID [facility] Last Admin: 10/16/17 17:44 Dose: 80 mg Tamsulosin HCl (Flomax) 0.4 mg PO DAILY [facility] Last Admin: 10/16/17 11:42 Dose: 0.4 mg Tramadol HCl (Ultram) 50 mg PO BID PRN PRN Reason: PAIN,MOD - Labs Labs: 10/15/17 00:30 10/17/17 06:20 PT 22.9 SECONDS (9.4-12.5) H 10/16/17 05:30 INR 2.05 (0.93-1.08) H 10/16/17 05:30 APTT 31.6 Seconds (25.1-36.5) 10/14/17 10:30 - Constitutional Appears: Non-toxic, No Acute Distress - Head Exam Head Exam: NORMAL INSPECTION - Cardiovascular Exam Cardiovascular Exam: +S1, +S2 - GI/Abdominal Exam GI & Abdominal Exam: Soft. absent: Tenderness - Extremities Exam Additional comments: right foot with dressings in place Assessment and Plan - Assessment and Plan (Free Text) Plan: Assessment systemic Inflammatory Response Syndrome, consider due to acute stress reaction from bleeding varicose veins, R/O infection , so far no evidence identified atrial fibrillation on anticoagulation morbid obesity with BMI 44 with chronic venous stasis and history of leg cellulitis S/P appendectomy S/P tonsillectomy history of varicose veins Plan Will monitor the patient off antibiotics; blood, urine cx are negative; PCT is < 0.05; reviewed CXR there is no evidence of acute infection in the legs will continue monitor clinically off antibiotics
--- NOTE | 2017-10-17 15:23 | CARD ---
APPROVED REPORT Protocol: LEXISCAN Test Type: Lexiscan Sestamibi Stress Test Attending Physician: Dr. Stella Johnson Referring Physician: Dr. Manav Rubio Test Indications: Chest Pain Height:6 ft 2 in Weight:340lbs Medications: Norvasc, Eliquis, Lipitor,Cardizem, Lasix, Apresoline, Lisinopril, Cozaar, Betapase, Flomax, Ultram Medical History: 62 y/o male with a history of CHF, A-fib, htn, hyperlipidemia, COPD Target HR: 158 bpm Resting ECG: Atrial Fibrillation. Resting Heart Rate: 96 bpm Resting Blood Pressure: 150/80mmHg Submaximum (85%): 134 bpm PROCEDURE Pharmacologic stress testing was performed using 0.4mg per 5ml of regadenoson given intravenously over 7-10 seconds. Reversal agent aminophyline 100 mg, given intravenously for Dyspnea. POST EXERCISE Reason for Termination: Protocol completed Target HR: No Max HR: 84 bpm 84% of Maximum Predicted HR: 158 bpm Exercise duration: 00:32 min:sec, 0 Stage Exercise capacity: 1.0METs Max Blood Pressure: 150/80mmHg Blood Pressure response to exercise: normal resting BP - appropriate response Heart Rate response to exercise: appropriate Chest Pain: No, none Angina index: 0 Arrhythmia: Yes, Atrial Fibrillation as on Resting EKG. ST Change: Yes, Less than 1mm ST Depression in 2,3,AVF,V4,V5, V6. Deviation: 0 mm TEST SUMMARY [id number]. INFUSIONDOSE [id number]. [id number]. INTERPRETATION Stress EKG Conclusion: IV LEXISCAN NUCLEAR STRESS TEST NEGATIVE FOR CHEST PAIN AND NEGATIVE FOR ANY SIGNIFICANT ST-T CHANGES. NUCLEAR SCAN REPORT PENDING. Signed by Stella Johnson Electronically Approved: 10/16/2017 11:32:16 EXAM: Myocardial Perfusion STRESS/REST 2DAYS Stress Test Type: Pharmacologic Imaging Protocol Rest Spect myocardial perfusion imaging was performed in supine position 45 minutes following the injection of 30.9 mCi of Tc-99 Myoview. At peak stress, the patient was injected intravenously with 30.6mCi of Tc-99 tetrofosmin after an infusion time of 0 minutes and 10 seconds. Gated Stress Spect was performed 60 minutes after intravenous Tc-99 Myoview injection. The images were gated to evaluate regional wall motion and calculate ventricular ejection fraction.Images were reconstructed using backfilter projection method in short horizontal and verticle long axis. Spect slices were generated. LV Perfusion The quality of the study is good. The left ventricle is mildly enlarged in size with thickened myocardium. The right ventricle is unremarkable. The lung uptake is within normal limits. The distribution of tracer reveals normal uptake pattern throughout the LV myocardium on the stress study. The rest myocardial perfusion study shows no significant change. Wall Motion Wall motion study shows good contractility of the left ventricle. LVEF = 67%. Conclusion 1. Normal SPECT myocardial perfusion study. 2. Normal gated wall motion of the left ventricle. 3. In comparison with the last study of 06/23/2014, there is no significant change
--- NOTE | 2017-10-18 23:48 | DS ---
HISTORY OF PRESENT ILLNESS: A 62-year-old male came in with bleeding from his lower extremity varicose vein. The patient was seen and treated with local compression and seen by vascular surgeon, Dr. Mims and also Dr. Nick Rodrigues. The patient's bleeding stopped, no further bleeding. He kept his leg elevated and local compression seen also by Podiatry. Lac-Hydrin was put in the skin. The patient has stasis dermatitis advice to pay attention to the skin and to elevate his leg if this happens again. The patient denied any chest pain, any shortness of breath. He did have seen by Cardiology because he felt dizzy. Echocardiogram was normal with no rheumatic heart disease and good LV functions. He has no chest pain. No shortness of breath. The patient has resumed all his medications. We discontinued Coumadin and the patient was put on Eliquis 5 mg b.i.d. We will continue all treatment as it is. The patient understands the treatment and will follow up clinically. PHYSICAL EXAMINATION: VITAL SIGNS: Temperature 98.1, heart rate 85, blood pressure 117/77, respirations 18, and saturation 99%. HEAD AND NECK: Normal. CHEST: Clear. CARDIAC: First sound and second sound normal . ABDOMEN: Soft, obese and nontender. EXTREMITIES: Wraps are closed. SKIN: Soft. NEUROLOGIC: Normal. LABORATORY DATA: The patient had chemistry; potassium 3.4, he was given potassium p.o. and sodium 144, chloride 108, bicarbonate 29, BUN 8, creatinine 0.8, and calcium is normal at 8.7. Troponin three times was negative and also procalcitonin was negative. His blood culture came back negative. Urine culture was negative. His TSH is 1.80. DISCHARGE DIAGNOSES: 1. Acute severe bleed from his right leg varicose veins from venous stasis. 2. Anemia mild. We will monitor his hemoglobin. The patient will be getting iron p.o. twice a day and colonoscopy and GI evaluation as outpatient. 3. Hypertension: We will reduce Norvasc to 5 mg plus continue all other medications. 4. Moderate obesity: The patient was advised to lose weight by diet and exercise. 5. Hypercholesterolemia: Continue his medications. 6. Stasis dermatitis. 7. Chronic osteoarthritis. 8. Chronic atrial fibrillation. Continue Eliquis, no more Coumadin. PLAN: See the patient as outpatient for followup. Manav Rubio MD
== END 2017-10-17 14:41 | disposition home or self-care (01) | DRG 543 ==
LOC: ED 09:31 → ERH 12:21 → 3RSO 18:34
PROVIDERS: ADMIT Internal Medicine; ATTEND Internal Medicine
DX: I83.891 Varicose veins of right lower extremity with other complications (principal); R65.10 Systemic inflammatory response syndrome (SIRS) of non-infectious origin without acute organ dysfunction; I83.12 Varicose veins of left lower extremity with inflammation; I83.11 Varicose veins of right lower extremity with inflammation; I47.2 Ventricular tachycardia; I11.0 Hypertensive heart disease with heart failure; I50.9 Heart failure, unspecified; E87.6 Hypokalemia; I48.2 Chronic atrial fibrillation; D64.9 Anemia, unspecified; E78.00 Pure hypercholesterolemia, unspecified; M19.90 Unspecified osteoarthritis, unspecified site; E66.01 Morbid (severe) obesity due to excess calories; R55 Syncope and collapse; Z68.41 Body mass index [BMI] 40.0-44.9, adult; Z79.82 Long term (current) use of aspirin; Z79.01 Long term (current) use of anticoagulants; Z88.5 Allergy status to narcotic agent